=== PATIENT | male | born 1995 | race Hispanic/Latino ===

== ENCOUNTER 2021-10-12 17:24 | Emergency (ER) | payer OTHER ==
[~2021-10-12] VITALS: Ht 175.3 cm; Wt 81.6 kg
[2021-10-12 17:27] VITALS: BP 117/83
== END 2021-10-12 18:14 | disposition home or self-care (01) ==
LOC: EDH 17:24
DX: G56.01 Carpal tunnel syndrome, right upper limb (principal)
CPT/HCPCS: 29125

== ENCOUNTER 2023-08-11 14:33 | Emergency (ER) | payer BC ==
[~2023-08-11] VITALS: Ht 175.3 cm; Wt 88.5 kg
[2023-08-11] MEDS: KETOROLAC 15MG/ML VIAL (15MG/ML) IM STA (16:40)
[2023-08-11] MEDS: LIDOCAINE 1%-EPI 1:100,000 20 ML VIAL IJ STA (16:42)
[2023-08-11] MEDS ORDERED: IBUP-2071 PO (17:50)
[2023-08-11] MEDS: DIPH,PERTUSS(ACELL),TET VAC/PF 0.5 ML VIAL IM ONE (18:33)
[2023-08-11 18:41] VITALS: BP 131/84; PULSE 69; RESP 20; O2SAT 99
== END 2023-08-11 18:42 | disposition home or self-care (01) ==
LOC: EDH 14:33
DX: S61.512A Laceration without foreign body of left wrist, initial encounter (principal); W01.0XXA Fall on same level from slipping, tripping and stumbling without subsequent striking against object, initial encounter; Y93.89 Activity, other specified; Y92.89 Other specified places as the place of occurrence of the external cause; Y99.8 Other external cause status
CPT/HCPCS: 99284; 90715; 90471; 12002; 96372; J3490; J1885